=== PATIENT | male | born 1965 | race Two or more races ===

== ENCOUNTER 2023-06-25 21:55 | Emergency (ER) | payer SELFPAY ==
[~2023-06-25] VITALS: Ht 172.7 cm; Wt 80.0 kg
[2023-06-25 23:41] VITALS: BP 121/78; PULSE 94; RESP 16; O2SAT 95
== END 2023-06-26 01:41 | disposition home or self-care (01) ==
LOC: ER 21:55 → EDBD 21:55 → ER 06-26 01:41
DX: F10.10 Alcohol abuse, uncomplicated (principal); Y90.9 Presence of alcohol in blood, level not specified

== ENCOUNTER 2023-07-06 12:47 | Emergency (ER) | payer SELFPAY ==
[~2023-07-06] VITALS: Ht 177.8 cm; Wt 77.5 kg
[2023-07-06 12:52] VITALS: BP 126/82; PULSE 97; RESP 16; O2SAT 99
== END 2023-07-06 17:47 | disposition left against medical advice (07) ==
LOC: EDBD 12:47 → ER 12:47
DX: F41.9 Anxiety disorder, unspecified (principal); F10.90 Alcohol use, unspecified, uncomplicated; Z53.21 Procedure and treatment not carried out due to patient leaving prior to being seen by health care provider; Y90.0 Blood alcohol level of less than 20 mg/100 ml